=== PATIENT | male | born 1935 | race Caucasian/White ===

== ENCOUNTER → 2017-03-26 | Outpatient (CLI) | payer OTHER ==
[~2017-03-26] MED LIST: ASPIRIN325 PO; CARVEDILOL6.25 MG PO; CENTRUM TABLET1 TAB PO; COUMADIN 4 MG TA4 M1 PO; CRESTOR; CRESTOR40 MG PO; FISH OIL 1,001000 M2 PO; FISHOIL PO; GLUCOSAMINE HC500 MG PO; JANUMET 50-1,01 EACH PO; LISINOPRIL5 MG PO; METFORMIN PO; MULTIPLE VITAM1 EAC3 PO; MULTIVITAMINS1 EAC7 PO; NORCO 5-325 TA1 EACH PO; TRIGLIDE160 M1 PO; TRIGLIDE50 MG PO; TYLENOL325 MG PO
[2017-03-26 08:55] LABS: CREATININE 0.8 mg/dL (0.7-1.3)
== END ==
LOC: CAT 08:04
PROVIDERS: Internal Medicine
DX: I12.9 Hypertensive chronic kidney disease with stage 1 through stage 4 chronic kidney disease, or unspecified chronic kidney disease (principal); E11.22 Type 2 diabetes mellitus with diabetic chronic kidney disease; N18.1 Chronic kidney disease, stage 1; R10.11 Right upper quadrant pain

== ENCOUNTER 2017-05-18 13:54 | Emergency (ER) | payer OTHER ==
[~2017-05-18] VITALS: Ht 165.1 cm; Wt 70.3 kg
[2017-05-18] MEDS ORDERED: NORCO 5-325 TA1 EACH PO (16:49)
== END 2017-05-18 17:36 | disposition home or self-care (01) ==
LOC: ER 13:54
DX: S22.41XA Multiple fractures of ribs, right side, initial encounter for closed fracture (principal); S70.01XA Contusion of right hip, initial encounter; E11.9 Type 2 diabetes mellitus without complications; I10 Essential (primary) hypertension; E78.00 Pure hypercholesterolemia, unspecified; F10.99 Alcohol use, unspecified with unspecified alcohol-induced disorder; Z90.49 Acquired absence of other specified parts of digestive tract; Z98.890 Other specified postprocedural states; Z88.5 Allergy status to narcotic agent; Z88.8 Allergy status to other drugs, medicaments and biological substances; W10.9XXA Fall (on) (from) unspecified stairs and steps, initial encounter; Y93.89 Activity, other specified; Y92.89 Other specified places as the place of occurrence of the external cause; Y99.8 Other external cause status

== ENCOUNTER → 2017-07-30 | Outpatient (CLI) | payer OTHER ==
[~2017-07-30] VITALS: Ht 165.1 cm; Wt 65.8 kg
--- NOTE | ~2017-07-30 | P ---
[facility] [place] [address] PROCEDURE REPORT Name: JENIFFER TY Room #: REG [facility] Jana#: [id number] Admission: 07/30/17 Attend Phys: Josh Dudley Discharge: Date of : 35 Report #: [id number] THIS REPORT FOR: //name// CC: Josh Craven MD DATE OF SERVICE: 07/30/2017 PROCEDURE PERFORMED: Upper endoscopy with biopsies and esophageal dilation. HISTORY OF PRESENT ILLNESS: The patient is an 82-year-old male who was seen in the office on 04/29/2017 with complaints of right upper quadrant abdominal pain, which was intermittent. He had a previous cholecystectomy. CT scan of the abdomen and pelvis was essentially negative. At that time, he had a change in his stool color, which was dark. He has had a previous history of colon polyps. He does complain of intermittent dysphagia. Plan is for EGD and colonoscopy today. DESCRIPTION OF PROCEDURE: The risks and benefits of the procedure were explained to the patient, those risks including but not limited to bleeding, perforation, the risk of sedation. He understood these risks and gave informed consent. Using a standard [employer] upper endoscope, the scope was placed in the patient's mouth and advanced under direct vision through the esophagus, stomach and into the second portion of the duodenum. The esophagus was normal throughout. The GE junction was normal. No evidence of stricture. Overall, the gastric mucosa was normal and because the patient's abdominal pain, biopsies were obtained to rule out the possibility of H. pylori. The pylorus was normal and patent. The duodenal bulb, first and second portion were all normal. Biopsies were obtained in the duodenum to rule out celiac sprue. The scope was then brought back up into the patient's stomach and a Savary guidewire was inserted through the scope, leaving the guidewire in place as the scope was then withdrawn. Next, 48-[place] Savary dilation was performed at the esophagus without difficulty. The wire and dilator were removed. The scope was reintroduced into the patient's stomach. There was no evidence of mucosal tear after dilation. The scope was then withdrawn and the procedure terminated. The patient tolerated the procedure well. IMPRESSION: Normal upper endoscopy. RECOMMENDATIONS: 1. Await biopsy results. 2. Observe the patient post-dilation. 3. We will proceed with colonoscopy next today. [address] [address] PROCEDURE REPORT Name: JENIFFER TY Room #: REG [facility] Bates#: [id number] Admission: 07/30/17 Attend Phys: Josh Dudley Discharge: Date of : 35 Report #: [id number] Thank you for allowing me to participate in his care. By: [id number] [id number] Josh Montaño MD /nt
--- NOTE | ~2017-07-30 | S ---
[facility] [place] [address] SURGICAL PATH RPT PROCEDURE Name: KYLER TY Room #: REG [facility] Jana#: [id number] Admission: 07/30/17 Date of : 35 Discharge: Report #: [id number] Path Case #: [id number] PATHOLOGY REPORT COLLECTION DATE: 07/30/2017 RECEIVED DATE: 07/30/2017 SUBMITTING PHYS: Dr. Josh Montaño OTHER PHYS: Dr. Richard Craven SPECIMEN(S) RECEIVED: A.Duodenum bx R/O sprue B.Gastric bx R/O H. pylori C.Transverse colon polyp D.Sigmoid colon polyp * * * * * * * * * * * * FINAL DIAGNOSIS: A. Duodenum bx R/O sprue: - Unremarkable small bowel mucosa. B. Gastric bx R/O H. 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 - An H. pylori immunostain is negative (Block B1; appropriately reactive control). C. Transverse colon polyp: - Colonic mucosa with both hyperplastic and adenomatous features. - Negative for high grade dyspalsia. D. Sigmoid colon polyp: - Colonic mucosa with hyperplastic features. PATHOLOGIST: Johnathon Giles M.D. REPORT ELECTRONICALLY SIGNED BY: Johnathon Giles M.D. DATE/TIME: 08/01/2017 10:30 * * * * * * * * * * * * GROSS PATHOLOGY: A. Received in formalin labeled "Kyler Ty, duodenum," are 3 segments of walker soft tissue measuring 0.8 x 0.4 x 0.3 cm in aggregate dimensions and measuring 0.3 cm each in maximum dimension. The specimen is submitted entirely in cassette A1. B. Received in formalin labeled "Kyler Ty, gastric," are 3 segments of walker soft tissue measuring 0.9 x 0.4 x 0.3 cm in aggregate dimensions and ranging from 0.3 to 0.4 cm in maximum dimension. The specimen is submitted entirely in cassette B1. C. Received in formalin labeled "Kyler Ty, polyp transverse colon," are 2 segments of walker soft tissue measuring 0.6 x 0.3 x 0.3 cm in aggregate dimensions and measuring 0.3 cm each in maximum [address] [address] SURGICAL PATH RPT PROCEDURE Name: KYLER TY Room #: REG [facility].#: [id number] Admission: 07/30/17 Date of : 35 Discharge: Report #: [id number] Path Case #: [id number] dimension. The specimen is submitted entirely in cassette C1. D. Received in formalin labeled "Kyler Ty, polyp sigmoid colon," are 2 segments of walker soft tissue measuring 0.7 x 0.2 x 0.2 cm in aggregate dimensions and ranging from 0.2 to 0.5 cm in maximum dimension. The specimen is submitted entirely in cassette D1. (TSD; 07/31/2017) CLINICAL HISTORY: Pre-OP DX: Hx colon polyps, dysphagia Post-OP DX: Colon polyps, diverticulosis INITIAL CPT CODE(S): A; 40503 B; 25246, 31087 C; 38610 D; 51258 Professional services performed by [facility] at [facility] [address], [place] [address] Technical services performed by [facility] at [address] [place] [address], [address], [place] [address]. [facility] [address] [place] [address] PHONE: [phone] DIRECTOR: Amrit Mora M.D. * * * END OF REPORT * * *
--- NOTE | ~2017-07-30 | P ---
[facility] [place] [address] PROCEDURE REPORT Name: JENIFFER TY Room #: REG [facility] Jana#: [id number] Admission: 07/30/17 Attend Phys: Josh Dudley Discharge: Date of : 35 Report #: [id number] THIS REPORT FOR: //name// CC: Josh Craven DATE OF SERVICE: 07/30/2017 PROCEDURE PERFORMED: Colonoscopy with biopsies. HISTORY OF PRESENT ILLNESS: The patient is an 82-year-old male seen in the office on 04/29/2017 with intermittent right upper quadrant abdominal pain, at this time it is more right flank pain. He has had a previous history of colon polyps and diverticulosis. He had a CT scan of his abdomen and pelvis on 03/26/2017, which was essentially negative. He has had a previous appendectomy and cholecystectomy. Upper endoscopy was just performed, which was normal. DESCRIPTION OF PROCEDURE: The risks and benefits of the procedure were explained to the patient, those risks including, but not limited to bleeding, perforation and the risk of sedation. He understood these risks and gave informed consent. Sedation was given using propofol per anesthesia. Next, a digital rectal exam was initially performed, which was normal. Next, using a standard [employer] colonoscope, the scope was placed in the patient's anus and advanced under direct vision to the cecum. The overall prep was excellent. The cecum and ileocecal valve were normal in appearance. A few scattered diverticula were noted in the ascending colon. In the transverse colon, there was a 3 mm sessile polyp. This was removed with cold forceps, otherwise normal. The ascending colon was normal. Multiple diverticula were noted in the sigmoid colon, a 4 mm sessile polyp was also noted and removed with cold forceps. The rectal mucosa was normal. On retroflexion, small nonbleeding internal hemorrhoids were noted, otherwise normal colonoscopy. The scope was then withdrawn and the procedure terminated. The patient tolerated the procedure well. IMPRESSION: 1. Two small colonic polyps. 2. Diverticulosis in the ascending and sigmoid colon, no evidence of inflammation. 3. Small internal hemorrhoids. 4. Otherwise, normal colonoscopy. RECOMMENDATIONS: 1. Await biopsy results. 2. Etiology of right flank pain is unclear, EGD and colonoscopy were normal today. [address] [address] PROCEDURE REPORT Name: TYJENIFFER Room #: REG [facility] Jana#: [id number] Admission: 07/30/17 Attend Phys: Josh Dudley Discharge: Date of : 35 Report #: [id number] Thank you for allowing me to participate in his care. By: [id number] Josh Montaño MD /papa
== END ==
LOC: GI 05:25
DX: K63.5 Polyp of colon (principal); K57.30 Diverticulosis of large intestine without perforation or abscess without bleeding; R13.19 Other dysphagia; K64.8 Other hemorrhoids; E11.9 Type 2 diabetes mellitus without complications; E78.00 Pure hypercholesterolemia, unspecified; Z87.19 Personal history of other diseases of the digestive system; Z90.49 Acquired absence of other specified parts of digestive tract; Z87.891 Personal history of nicotine dependence; Z95.1 Presence of aortocoronary bypass graft; Z88.6 Allergy status to analgesic agent; Z79.82 Long term (current) use of aspirin; Z79.899 Other long term (current) drug therapy; Z88.1 Allergy status to other antibiotic agents; Z98.890 Other specified postprocedural states
CPT/HCPCS: 62110; 62900

== ENCOUNTER → 2017-11-24 | Outpatient (CLI) | payer OTHER | LOC: NUC 07:19 | DX: I25.10 Atherosclerotic heart disease of native coronary artery without angina pectoris (principal); E11.9 Type 2 diabetes mellitus without complications ==

== ENCOUNTER → 2018-11-23 | Outpatient (CLI) | payer OTHER ==
--- NOTE | 2018-11-23 10:45 | 2DMMODE ---
[facility] [place] [address] 2 D/M-MODE ECHOCARDIOGRAM Name: JENIFFER TY Room #: REG [facility]#: [id number] ������������� Admission: 11/23/18 ������������� Attend Phys: Jarett Gamez MD Discharge: ��� ������������� ��� Date of : 35 Date of Service: 11/23/18 1044 �� Report #: [id number] �������� ��������������������������������������������[id number] THIS REPORT FOR: //name// APPROVED REPORT Study performed: 11/23/2018 09:12:40 EXAM: Comprehensive 2D, Doppler, and color-flow Echocardiogram Patient Location: Out-Patient Status: routine BSA: 1.77 HR: 63 bpm BP: 134/62 mmHg Rhythm: NSR Other Information Study Quality: Good Indications CAD Hx: CABG, DM, HTN, HLP 2D Dimensions RVDd: 35.75 mm IVSd: 10.65 (7-11mm) LVOT Diam: 22.29 (18-24mm) LVDd: 44.12 mm PWd: 10.80 (7-11mm) Ascending Ao: 35.13 (22-36mm) LVDs: 30.88 (25-40mm) Aortic Root: 34.60 mm Volumes Left Atrial Volume (Systole) Single Plane 4CH: 50.42 mL Single Plane 2CH: 56.30 mL Aortic Valve AoV Peak Nayan.: 2.17 m/s AO Peak Gr.: 18.84 mmHg LVOT Max P.41 mmHg AO Mean Gr.: 8.98 mmHg AO V2 Mean: 1.41 m/s LVOT Max V: 0.92 m/s AO V2 VTI: 43.45 cm RULA Vmax: 1.66 cm2 Mitral Valve E/A Ratio: 0.9 [facility] [place] [address] [place] [address] 2 D/M-MODE ECHOCARDIOGRAM Name: JENIFFER TY Room #: REG [facility]#: [id number] ������������� Admission: 11/23/18 ������������� Attend Phys: Jarett Gamez MD Discharge: ��� ������������� ��� Date of : 35 Date of Service: 11/23/18 1044 �� Report #: [id number] �������� ��������������������������������������������[id number] MV Decel. Time: 246.46 ms MV E Max Nayan.: 0.68 m/s MV A Nayan.: 0.80 m/s MV PHT: 71.47 ms IVRT: 79.58 ms Pulmonary Valve PV Peak Nayan.: 0.91 m/s PV Peak Gr.: 3.29 mmHg Pulmonary Vein P Vein S: 0.52 m/s P Vein A: 0.30 m/s P Vein D: 0.55 m/s P Vein A Dur.: 83.0 msec P Vein S/D Ratio: 0.95 Tricuspid Valve TR Peak Nayan.: 2.49 m/s RAP Estimate: 5.00 mmHg TR Peak Gr.: 24.82 mmHg PA Pressure: 30.00 mmHg Left Ventricle The left ventricle is normal size. There is normal LV segmental wall motion. There is normal left ventricular wall thickness. Left ventricular systolic function is normal. LVEF is 55%. Mild diastolic dysfunction is present (impaired relaxation pattern). Right Ventricle The right ventricle is normal size. The right ventricular systolic function is normal. Atria The left atrium size is normal. The right atrium size is normal. Aortic Valve Aortic valve is moderately calcified. No aortic regurgitation is present. There is mild valvular aortic stenosis. Calculated aortic valve area is 1.7 cm2 with maximum pressure gradient of 19 mmHg and mean pressure gradient of 9 mmHg. Mitral Valve Mitral valve leaflets are mildly thickened. Trace mitral regurgitation. Tricuspid Valve The tricuspid valve is normal in structure. Mild to moderate tricuspid regurgitation. Estimated PAP is 30mmHg. [address] [address] 2 D/M-MODE ECHOCARDIOGRAM Name: JENIFFER TY Room #: REG [facility]#: [id number] ������������� Admission: 11/23/18 ������������� Attend Phys: Jarett Gamez MD Discharge: ��� ������������� ��� Date of : 35 Date of Service: 11/23/18 1044 �� Report #: [id number] �������� ��������������������������������������������[id number] Pulmonic Valve The pulmonary valve is normal in structure. Trace pulmonic regurgitation. Great Vessels The aortic root is normal in size. The ascending aorta is normal in size. IVC is normal in size and collapses >50% with inspiration. Pericardium There is no pericardial effusion. <Conclusion> The left ventricle is normal size. There is normal left ventricular wall thickness. Left ventricular systolic function is normal. Mild diastolic dysfunction is present (impaired relaxation pattern). The right ventricle is normal size. The left atrium size is normal. Aortic valve is moderately calcified. There is mild valvular aortic stenosis. Calculated aortic valve area is 1.7 cm2 with maximum pressure gradient of 19 mmHg and mean pressure gradient of 9 mmHg. Mitral valve leaflets are mildly thickened. Trace mitral regurgitation. Mild to moderate tricuspid regurgitation. Estimated PAP is 30mmHg. ��������������������������������������������� <ELECTRONICALLY SIGNED> ���������������������������������������� By: Jarett Gamez MD ��������������������������������������������� 11/23/18 1044 1044 1044 Jarett Gamez MD /INF
== END ==
LOC: CV 08:23
DX: I08.2 Rheumatic disorders of both aortic and tricuspid valves (principal); I25.10 Atherosclerotic heart disease of native coronary artery without angina pectoris; E11.9 Type 2 diabetes mellitus without complications; I10 Essential (primary) hypertension; E78.5 Hyperlipidemia, unspecified; Z88.5 Allergy status to narcotic agent; Z88.8 Allergy status to other drugs, medicaments and biological substances; Z95.1 Presence of aortocoronary bypass graft

== ENCOUNTER → 2019-11-29 | Outpatient (CLI) | payer OTHER | LOC: SJCVCIMAG 08:12 | DX: I45.2 Bifascicular block (principal); I25.810 Atherosclerosis of coronary artery bypass graft(s) without angina pectoris; I10 Essential (primary) hypertension; E78.00 Pure hypercholesterolemia, unspecified; R60.9 Edema, unspecified; E11.9 Type 2 diabetes mellitus without complications; E78.5 Hyperlipidemia, unspecified; Z79.82 Long term (current) use of aspirin; Z79.899 Other long term (current) drug therapy; Z95.1 Presence of aortocoronary bypass graft; Z87.891 Personal history of nicotine dependence ==

== ENCOUNTER → 2020-05-31 | Outpatient (CLI) | payer OTHER | LOC: SJCVC 13:44 | PROVIDERS: ATTEND Internal Medicine Cardiovascular Disease | DX: R94.31 Abnormal electrocardiogram [ECG] [EKG] (principal); I45.10 Unspecified right bundle-branch block; I25.10 Atherosclerotic heart disease of native coronary artery without angina pectoris; Z95.1 Presence of aortocoronary bypass graft; I10 Essential (primary) hypertension; E78.00 Pure hypercholesterolemia, unspecified; Z79.899 Other long term (current) drug therapy; Z87.891 Personal history of nicotine dependence ==

== ENCOUNTER → 2020-12-04 | Outpatient (CLI) | payer OTHER | LOC: SJCVCIMAG 07:42 | PROVIDERS: ATTEND Internal Medicine Cardiovascular Disease | DX: I08.2 Rheumatic disorders of both aortic and tricuspid valves (principal); I11.9 Hypertensive heart disease without heart failure; I25.10 Atherosclerotic heart disease of native coronary artery without angina pectoris; E78.00 Pure hypercholesterolemia, unspecified; R60.9 Edema, unspecified; E11.9 Type 2 diabetes mellitus without complications; E78.5 Hyperlipidemia, unspecified; Z95.1 Presence of aortocoronary bypass graft; Z88.8 Allergy status to other drugs, medicaments and biological substances; Z79.82 Long term (current) use of aspirin; Z79.899 Other long term (current) drug therapy; Z87.891 Personal history of nicotine dependence; Z82.49 Family history of ischemic heart disease and other diseases of the circulatory system ==

== ENCOUNTER → 2020-12-11 | Outpatient (CLI) | payer OTHER | LOC: SJCVCIMAG 08:30 | PROVIDERS: ATTEND Internal Medicine Cardiovascular Disease | DX: I65.23 Occlusion and stenosis of bilateral carotid arteries (principal); Z79.82 Long term (current) use of aspirin; Z79.899 Other long term (current) drug therapy; Z87.891 Personal history of nicotine dependence; Z88.5 Allergy status to narcotic agent; Z88.8 Allergy status to other drugs, medicaments and biological substances; Z95.1 Presence of aortocoronary bypass graft ==

== ENCOUNTER → 2021-06-06 | Outpatient (CLI) | payer OTHER | LOC: SJCVC 12:51 | PROVIDERS: ATTEND Internal Medicine Cardiovascular Disease | DX: R94.31 Abnormal electrocardiogram [ECG] [EKG] (principal); I45.10 Unspecified right bundle-branch block; I25.10 Atherosclerotic heart disease of native coronary artery without angina pectoris; I10 Essential (primary) hypertension; E78.00 Pure hypercholesterolemia, unspecified; R60.9 Edema, unspecified; I77.9 Disorder of arteries and arterioles, unspecified; H81.90 Unspecified disorder of vestibular function, unspecified ear; D64.9 Anemia, unspecified; C44.91 Basal cell carcinoma of skin, unspecified; I65.23 Occlusion and stenosis of bilateral carotid arteries; E11.9 Type 2 diabetes mellitus without complications; Z79.82 Long term (current) use of aspirin; Z79.899 Other long term (current) drug therapy; Z88.5 Allergy status to narcotic agent; Z88.8 Allergy status to other drugs, medicaments and biological substances; Z87.891 Personal history of nicotine dependence ==